=== PATIENT | female | born 1990 | race Two or more races ===

== ENCOUNTER 2017-10-12 21:54 | Outpatient (CLI) | payer OTHER ==
[~2017-10-12 21:54] MED LIST: PEPCID40 MG PO; PHENERGAN25 MG PO; PRENATABS FA T1 EACH
== END 2017-10-13 10:06 | disposition home or self-care (01) ==
LOC: OBS/DEL 21:54
DX: O26.893 Other specified pregnancy related conditions, third trimester (principal); M54.9 Dorsalgia, unspecified; Z34.83 Encounter for supervision of other normal pregnancy, third trimester

== ENCOUNTER → 2017-10-18 | Outpatient (CLI) | payer OTHER | END | disposition home or self-care (01) | LOC: NUTRICION 09:00 | DX: O24.410 Gestational diabetes mellitus in pregnancy, diet controlled (principal); O99.213 Obesity complicating pregnancy, third trimester ==

== ENCOUNTER 2017-11-11 15:47 | Outpatient (CLI) | payer OTHER ==
[2017-11-12] MEDS ORDERED: PRENATAL TABLE1 EACH PO (13:00)
== END 2017-11-11 16:46 | disposition still patient (30) ==
LOC: NST 15:47
DX: Z34.83 Encounter for supervision of other normal pregnancy, third trimester (principal)

== ENCOUNTER 2017-11-11 16:48 | Inpatient (IN) | payer OTHER ==
[~2017-11-11] VITALS: Ht 160 cm; Wt 75.3 kg
[2017-11-12] MEDS ORDERED: PRENATAL TABLE1 EACH PO (13:00)
== END 2017-11-15 09:56 | disposition home or self-care (01) | DRG 780 ==
LOC: LDR 16:48 → OB/GYN 11-13 09:53
PROC: 4A1HXCZ Monitoring of Products of Conception, Cardiac Rate, External Approach (ICD-10-PCS; principal; 2017-11-11)
DX: O47.03 False labor before 37 completed weeks of gestation, third trimester (principal); Z3A.33 33 weeks gestation of pregnancy; O24.410 Gestational diabetes mellitus in pregnancy, diet controlled

== ENCOUNTER 2017-11-18 10:38 | Outpatient (CLI) | payer OTHER ==
[~2017-11-18 10:38] MED LIST changes: +PRENATAL TABLE1 EACH PO
== END 2017-11-18 11:36 | disposition home or self-care (01) ==
LOC: NST 10:38
DX: Z34.03 Encounter for supervision of normal first pregnancy, third trimester (principal)

== ENCOUNTER 2017-11-28 06:36 | Inpatient (IN) | payer OTHER ==
[~2017-11-28] VITALS: Ht 160 cm; Wt 3.2 kg
[2017-11-28] MEDS ORDERED: NIFE60TA3 PO (07:17)
== END 2017-12-01 10:36 | DRG 765 ==
LOC: LDR 06:36 → OB/GYN 06:36 → LDR 07:33 → O/R 12:00 → OB/GYN 16:10
PROVIDERS: Obstetrics & Gynecology
PROC: 4A1HXCZ Monitoring of Products of Conception, Cardiac Rate, External Approach (ICD-10-PCS; 2017-11-28)
PROC: 4A033R1 Measurement of Arterial Saturation, Peripheral, Percutaneous Approach (ICD-10-PCS; 2017-11-28)
PROC: BU4CZZZ Ultrasonography of Uterus and Ovaries (ICD-10-PCS; 2017-11-28)
PROC: 10D00Z1 Extraction of Products of Conception, Low, Open Approach (ICD-10-PCS; principal; 2017-11-28 12:15)
DX: O44.43 Low lying placenta NOS or without hemorrhage, third trimester (principal); O60.14X0 Preterm labor third trimester with preterm delivery third trimester, not applicable or unspecified; Z3A.36 36 weeks gestation of pregnancy; Z37.0 Single live birth